=== PATIENT | male | born 1975 | race African-American/Black ===

== ENCOUNTER 2018-04-04 17:54 | Observation (INO) | payer MEDICAID, OTHER ==
[~2018-04-04] VITALS: Ht 193 cm; Wt 90.2 kg
[~2018-04-04 17:54] MED LIST: LISI2.5T PO
[2018-04-04] MEDS ORDERED: DIPHENHYDRAMINE 25 MG CAPSULE PO ONE (18:30)
[2018-04-04] MEDS ORDERED: FAMOTIDINE 20 MG TABLET PO ONE (18:30)
[2018-04-04] MEDS ORDERED: FAMOTIDINE 20 MG TABLET ONE (18:45)
[2018-04-04] MEDS ORDERED: DIPHENHYDRAMINE 50 MG CAPSULE ONE (18:45)
--- NOTE | 2018-04-04 19:35 | NUR ---
MD TO BEDSIDE TO RECOMMEND ADMISSION TO [facility], PT CURRENTLY DECLINING.
[2018-04-04] MEDS ORDERED: BENAZEPRIL (19:43)
--- NOTE | 2018-04-04 19:49 | NUR ---
PT. MOVED TO ED 22 FROM [facility]. RECEIVED REPORT FROM LISSY BRADLEY TO ASSUME PT. CARE.
[2018-04-04] MEDS ORDERED: ACYC-57 PO (19:58)
[2018-04-04] MEDS ORDERED: EPINEPHRINE 1 MG/ML, 1ML SQ ONE (20:00)
[2018-04-04] MEDS ORDERED: SODIUM CHLORIDE FLUSH 10ML SYR IVF ONE (20:00)
[2018-04-04] MEDS ORDERED: EPINEPHRINE 1 MG/ML, 1ML ONE (20:18)
[2018-04-04 20:22] LABS: BASOPHILS # (AUTO) 0.01 x10^3/uL (0-0.1); BASOPHILS % (AUTO) 0 % (0-1); EOSINOPHILS # (AUTO) 0.04 x10^3/uL (0-0.4); EOSINOPHILS % (AUTO) 2 % (1-7); LYMPHOCYTES # (AUTO) 1.52 x10^3/uL (1-3.4); LYMPHOCYTES % (AUTO) 50 % (22-44); MD NO; MEAN CORPUSCULAR HEMOGLOBIN 29.2 pg (27.5-34.5); MEAN CORPUSCULAR HGB CONC 33.7 g/dL (33.2-36.2); MEAN CORPUSCULAR VOLUME 86.6 fL (81-97); MEAN PLATELET VOLUME 8.9 fL (7.4-10.4); MONOCYTES % (AUTO) 10 % (2-9); NEUTROPHILS # (AUTO) 1.15 x10^3/uL (1.8-6.8); NEUTROPHILS % (AUTO) 38 % (42-75); PLATELET COUNT 154 x10^3/uL (130-400); RED BLOOD COUNT 5.74 x10^6/uL (4.38-5.82); RED CELL DISTRIBUTION WIDTH 13.6 % (9.4-14.8)
[2018-04-04 20:32] LABS: ALBUMIN 4.3 g/dL (3.4-5.0); ANION GAP 8 mmol/L (5-15); CALCIUM 9.3 mg/dL (8.5-10.1); CHLORIDE 105 mmol/L (98-107); CREATININE 0.95 mg/dL (0.7-1.3)
--- NOTE | 2018-04-04 20:33 | NUR ---
[facility] AT TO EVAL PT. FOR ADMISSION. PT. MEDICATED PER MAY. PT. AMBULATED TO BR WITH STEADY GAIT. AWAITNG ROOM ON FLOOR.
[2018-04-04] MEDS ORDERED: ONDANSETRON 2MG/ML, 2ML IVPush PRN (21:00)
[2018-04-04] MEDS ORDERED: DOCUSATE 100 MG CAPSULE PO PRN (21:00)
[2018-04-04] MEDS ORDERED: PROMETHAZINE 25 MG/ML, 1ML IM PRN (21:00)
[2018-04-04] MEDS ORDERED: ACETAMINOPHEN 325 MG TABLET PO PRN (21:00)
[2018-04-04] MEDS ORDERED: OXYcodone IR 5MG TABLET PO PRN (21:00)
[2018-04-04] MEDS ORDERED: BISACODYL 10 MG SUPP PR PRN (21:00)
[2018-04-04] MEDS ORDERED: ONDANSETRON ODT 4 MG PO PRN (21:00)
[2018-04-04] MEDS ORDERED: morphine SULFATE 10 MG/ML, 1ML IVPush PRN (21:00)
[2018-04-04] MEDS ORDERED: POLYETHYLENE GLYCOL 17 GM PACKET PO PRN (21:00)
--- NOTE | 2018-04-04 21:15 | NUR ---
ATTEMPT TO CALL FLOOR TO GIVE REPORT AT THIS TIME.
--- NOTE | 2018-04-04 21:16 | NUR ---
PT. PROVIDED WITH A SECOND SANDWICH PER REQUEST. DIET ORDER IS IN AND IT WAS OK BY MD PRIOR TO PT. MOVING TO ED 22. PT. DID GET A SANDWICH FROM [facility] PRIOR TO THIS RN TAKING OVER. PT. STATES "IF I HAVE TO STAY HERE THEN YOU NEED TO GET ME SOME REAL FOOD NOT JUST A SANDWICH". PT. EXPRESSING FRUSTRATION OVER BEING ADMITTED TO HOSPITAL. LOWER LIP REMAINS SWOLLEN BUT PT. IS ABLE TO MAINTAIN AIRWAY AND EAT WITHOUT DIFFICULTY. DR. TINOCO DISCUSSED ANGIOEDEMA WITH PT. AND TOLD HIM TO ADD BENAZAPRIL TO HIS ALLERGY LIST. PT. REPORTS HE HAD BEEN ON THIS MED FOR YEARS; DR. TINOCO DISCUSSED WITH HIM THAT THIS CAN HAPPEN EVEN AFTER YEARS; MED ADDED TO ALLERGIES.
--- NOTE | 2018-04-04 21:25 | NUR ---
ATTEMPTING TO CALL FLOOR TO GIVE REPORT AGAIN AT THIS TIME. NO ANSWER.
[2018-04-04 21:53] LABS: FREE T4 (FREE THYROXINE) 0.98 ng/dL (0.76-1.46); THYROID STIMULATING HORMONE 0.339 mIU/L (0.358-3.740)
[2018-04-04 21:59] LABS: HEMOGLOBIN A1C 5.4 % (4.2-6.3)
[2018-04-04] MEDS: FAMOTIDINE 20 MG TABLET PO SCH ×2 (22:13→22:16)
[2018-04-04] MEDS: DIPHENHYDRAMINE 25 MG CAPSULE PO SCH (22:17)
[2018-04-04 22:30] VITALS: BP 112/66
[2018-04-04 22:52] VITALS: BP 112/66
[2018-04-05] MEDS: methylPREDNISolone SOD SUCC 40 MG/ML IVPush SCH ×2 (02:58→10:53)
[2018-04-05 04:51] VITALS: BP 129/76
[2018-04-05 05:46] VITALS: BP 137/78
[2018-04-05] MEDS ORDERED: CARVEDILOL 3.125 MG TABLET PO SCH (06:00)
[2018-04-05 06:51] VITALS: BP 118/74
[2018-04-05 07:25] LABS: CHOL/HDL RATIO 3.5
[2018-04-05] MEDS: DIPHENHYDRAMINE 25 MG CAPSULE PO SCH (10:53)
[2018-04-05] MEDS: FAMOTIDINE 20 MG TABLET PO SCH (10:53)
[2018-04-05] MEDS ORDERED: AMLO1CAP10 PO (11:02)
[2018-04-05] MEDS ORDERED: VALA1000 PO (11:02)
[2018-04-05] MEDS ORDERED: AMLO5TAB4 PO (11:37)
[2018-04-05] MEDS ORDERED: LOSA50TA2 PO (11:37)
== END 2018-04-05 13:25 | disposition home or self-care (01) ==
LOC: ED 19:18 → EDIP 19:49 → INTOOBSV 19:49 → 5SO 22:26 → DCLOUNGE 04-05 13:14
PROVIDERS: ADMIT Internal Medicine; ATTEND Internal Medicine
DX: T78.3XXA Angioneurotic edema, initial encounter (principal); B00.9 Herpesviral infection, unspecified; I10 Essential (primary) hypertension; F17.200 Nicotine dependence, unspecified, uncomplicated; F10.229 Alcohol dependence with intoxication, unspecified; Z82.3 Family history of stroke; Z82.49 Family history of ischemic heart disease and other diseases of the circulatory system
CPT/HCPCS: 36415; 80048; 80061; 82040; 83036; 83735; 84439; 84443; 85025; 96372; 96374; 96376; 99291; G0378; J0171; J2920; J7512; Q0163

== ENCOUNTER 2018-06-14 12:54 | Emergency (ER) | payer MEDICAID ==
[~2018-06-14] VITALS: Ht 193 cm; Wt 78.2 kg
[~2018-06-14 12:54] MED LIST changes: +ACYC-57 PO; +AMLO1CAP10 PO; +AMLO5TAB4 PO; +BENAZEPRIL; +LOSA50TA2 PO; +VALA1000 PO
[2018-06-14] MEDS ORDERED: ASPIRIN 81 MG TABLET CHEW PO ONE (13:30)
[2018-06-14 14:49] LABS: BASOPHILS # (AUTO) 0.01 x10^3/uL (0-0.1); BASOPHILS % (AUTO) 0 % (0-1); EOSINOPHILS # (AUTO) 0.19 x10^3/uL (0-0.4); EOSINOPHILS % (AUTO) 6 % (1-7); LYMPHOCYTES # (AUTO) 1.08 x10^3/uL (1-3.4); LYMPHOCYTES % (AUTO) 32 % (22-44); MD NO; MEAN CORPUSCULAR HEMOGLOBIN 28.6 pg (27.5-34.5); MEAN CORPUSCULAR HGB CONC 33.1 g/dL (33.2-36.2); MEAN CORPUSCULAR VOLUME 86.4 fL (81-97); MEAN PLATELET VOLUME 9.2 fL (7.4-10.4); MONOCYTES # (AUTO) 0.52 x10^3/uL (0.2-0.8); MONOCYTES % (AUTO) 15 % (2-9); NEUTROPHILS # (AUTO) 1.58 x10^3/uL (1.8-6.8); NEUTROPHILS % (AUTO) 47 % (42-75); PLATELET COUNT 138 x10^3/uL (130-400); RED BLOOD COUNT 5.55 x10^6/uL (4.38-5.82); RED CELL DISTRIBUTION WIDTH 13.5 % (9.4-14.8)
[2018-06-14 14:55] LABS: ALBUMIN 3.9 g/dL (3.4-5.0); ANION GAP 5 mmol/L (5-15); CALCIUM 9.3 mg/dL (8.5-10.1); CHLORIDE 105 mmol/L (98-107)
[2018-06-14 15:02] LABS: CREATININE 1.03 mg/dL (0.7-1.3); TROPONIN I < 0.015 ng/mL (0.000-0.045)
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
[2018-06-14 15:48] VITALS: BP 144/91
[2018-06-14] MEDS ORDERED: HYDROcodone/APAP 5/325 TABLET PO STA (16:09)
[2018-06-14] MEDS ORDERED: ASPIRIN 81 MG TABLET CHEW ONE (16:17)
[2018-06-14] MEDS ORDERED: HYDROcodone/APAP 5/325 TABLET ONE (16:18)
--- NOTE | 2018-06-14 16:18 | NUR ---
RN ADMINSITERED ASPIRIN PER EMAR. PT REFUSED MELO STATED "I DONT WANT TO BE HIGH OFF THAT SHIT I GOT STUFF TO DO. JUST GIVE ME MY PRESCRIPTION SCRIPT SO I CAN GO." AWAITING PA FOR DC INSTRUCTIONS.
--- NOTE | 2018-06-14 16:34 | NUR ---
ERMD AT BEDSIDE.
--- NOTE | 2018-06-14 17:05 | NUR ---
PT DISCHARGED HOME IN A STABLE CONDITION. DC INSTRUCTIONS WERE DISCUSSED WITH PT. PT VERBALIZED UNDERSTANDING. PRESCRIPTION SCRIPT WAS HANDED TO PT. NO FURTHER QUESTIONS OR CONCERNS WERE EXPRESSED AT THAT TIME. PT AMBULATED WITH RN TO DC DESK. STEADY GAIT.
== END 2018-06-14 17:08 | disposition home or self-care (01) ==
LOC: ED 16:58
DX: R07.89 Other chest pain (principal); F17.210 Nicotine dependence, cigarettes, uncomplicated; I10 Essential (primary) hypertension
CPT/HCPCS: 36415; 71045; 80048; 82040; 84484; 85025; 93005; 99284